=== PATIENT | female | born 2000 | race Two or more races ===

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

== ENCOUNTER 2021-04-03 19:22 | Emergency (ER) | payer MEDICAID ==
[~2021-04-03] VITALS: Ht 157.5 cm; Wt 56.8 kg
[~2021-04-03 19:22] MED LIST changes: -LIDO30CR TP; +LIDO30CR2 TP
[2021-04-03 20:30] VITALS: BP 128/87
--- NOTE | 2021-04-03 20:42 | PHYS DOC ---
Past Medical History Past Medical History: No Pertinent History (MINGO CABRERA APRN) Past Surgical History: No Surgical History (MINGO CABRERA APRN) Smoking Status: Never Smoker Alcohol Use: None Drug Use: Marijuana (MINGO CABRERA APRN) General Adult EDM: Chief Complaint: VOMITING IN HPI: HPI: Patient is a 21-year-old female that presents today with nausea and vomiting. Patient states her last normal menstrual period was January 222020, she took a test in January sometime and discovered that she was positive, since that time she has had nausea and vomiting. Today she comes to the emergency department because she does not feel well and she has been having chills. Patient denies vaginal bleeding vaginal discharge or abdominal pain. (MINGO CABRERA APRN) Review of Systems: Review of Systems: Constitutional: chills, Denies fever [] Eyes: Denies change in visual acuity. [] HENT: Denies nasal congestion or sore throat. [] Respiratory: Denies cough or shortness of breath. [] Cardiovascular: Denies chest pain or edema. [] GI: Nausea and vomiting denies abdominal pain,bloody stools or diarrhea. [] /SEGMENT PRODUCER: Denies dysuria, denies vaginal bleeding, vaginal discharge Musculoskeletal: Denies back pain or joint pain. [] Integument: Denies rash. [] Neurologic: Denies headache, focal weakness or sensory changes. [] Endocrine: Denies polyuria or polydipsia. [] Lymphatic: Denies swollen glands. [] Psychiatric: Denies depression or anxiety. [] (MINGO CABRERA APRN) Heart Score: C/O Chest Pain: N/A Risk Factors: Risk Factors: DM, Current or recent (<one month) smoker, HTN, HLP, family history of CAD, obesity. Risk Scores: Score 0 - 3: 2.5% MACE over next 6 weeks - Discharge Home Score 4 - 6: 20.3% MACE over next 6 weeks - Admit for Clinical Observation Score 7 - 10: 72.7% MACE over next 6 weeks - Early Invasive Strategies (MINGO CABRERA APRN) Allergies: Allergies: Allergies Coded Allergies Type Severity Reaction Last Updated Verified No Known Drug Allergies 7/26/20 No (MINGO CABRERA SERVICE ORDER DISPATCHER) Physical Exam: PE: Constitutional: Well developed, well nourished, no acute distress, non-toxic appearance. [] HENT: Normocephalic, atraumatic, bilateral external ears normal, oropharynx moist, no oral exudates, nose normal. [] Eyes: PERRLA, EOMI, conjunctiva normal, no discharge. [] Neck: Normal range of motion, no tenderness, supple, no stridor. [] Cardiovascular:Heart rate regular rhythm, no murmur [] Lungs & Thorax: Bilateral breath sounds clear to auscultation [] Abdomen: Bowel sounds normal, soft, no tenderness, no masses, no pulsatile masses. [] Skin: Warm, dry, no erythema, no rash. [] Back: No tenderness, no CVA tenderness. [] Extremities: No tenderness, no cyanosis, no clubbing, ROM intact, no edema. [] Neurologic: Alert and oriented X 3, normal motor function, normal sensory function, no focal deficits noted. [] Psychologic: Affect normal, judgement normal, mood normal. [] (MINGO CABRERA SERVICE ORDER DISPATCHER) Current Patient Data: Labs: Laboratory Tests Test 04/03/21 20:36 04/03/21 20:38 04/03/21 21:15 Urine Collection Type Unknown Urine Color Yellow Urine Clarity Clear Urine pH 6.5 Urine Specific [place] 1.010 Urine Protein Negative mg/dL Urine Glucose (UA) Negative mg/dL Urine Ketones (Stick) 15 mg/dL Urine Blood Negative Urine Nitrite Negative Urine Bilirubin Negative Urine Urobilinogen Dipstick 0.2 mg/dL Urine Leukocyte Esterase Negative Urine RBC Occ /HPF Urine WBC 1-4 /HPF Urine Squamous Epithelial Cells Mod /LPF Urine Bacteria Many /HPF Bedside Urine HCG, Qualitative Hcg positive White Blood Count 12.2 x10^3/uL Red Blood Count 3.68 x10^6/uL Hemoglobin 11.0 g/dL Hematocrit 31.8 % Mean Corpuscular Volume 86 fL Mean Corpuscular Hemoglobin 30 pg Mean Corpuscular Hemoglobin Concent 35 g/dL Red Cell Distribution Width 12.7 % Platelet Count 245 x10^3/uL Neutrophils (%) (Auto) 75 % Lymphocytes (%) (Auto) 17 % Monocytes (%) (Auto) 6 % Eosinophils (%) (Auto) 2 % Basophils (%) (Auto) 1 % Neutrophils # (Auto) 9.2 x10^3/uL Lymphocytes # (Auto) 2.0 x10^3/uL Monocytes # (Auto) 0.7 x10^3/uL Eosinophils # (Auto) 0.2 x10^3/uL Basophils # (Auto) 0.1 x10^3/uL Sodium Level 138 mmol/L Potassium Level 3.7 mmol/L Chloride Level 103 mmol/L Carbon Dioxide Level 23 mmol/L Anion Gap 12 Blood Urea Nitrogen 10 mg/dL Creatinine 0.5 mg/dL Estimated GFR (Cockcroft-Gault) 157.3 Glucose Level 100 mg/dL Calcium Level 8.2 mg/dL Lipase 87 U/L Current Medications Medications (Trade) Dose Ordered Sig/Shoaib Route PRN Reason Start Time Stop Time Status Last Admin Dose Admin Sodium Chloride 1,000 ml @ 125 mls/hr 1X ONCE IV 04/03/21 20:45 04/03/21 21:27 DC Ondansetron HCl (Zofran) 4 mg 1X ONCE IVP 04/03/21 20:45 04/03/21 20:46 DC 04/03/21 21:24 Sodium Chloride 1,000 ml @ 999 mls/hr 1X ONCE IV 04/03/21 22:00 04/03/21 23:00 04/03/21 22:00 Vital Signs: Vital Signs Date Time Temp Pulse Resp B/P (MAP) Pulse Ox O2 Delivery O2 Flow Rate FiO2 04/03/21 20:30 98.6 85 18 128/87 (101) 98 Room Air 98.6 (MINGO CABRERA SERVICE ORDER DISPATCHER) EKG: EKG: [] (MINGO CABRERA SERVICE ORDER DISPATCHER) Radiology/Procedures: Radiology/Procedures: [] (MINGO CABRERA SERVICE ORDER DISPATCHER) Course & Med Decision Making: Course & Med Decision Making Pertinent Labs and Imaging studies reviewed. (See chart for details) 2214 patient states she feels much better, nausea has improved. Patient will be discharged home directed to eat small frequent meals, will given a prescription for Zofran as needed to be taken every 6 hours for nausea. Patient states she is seen in the [facility] here in [facility] for her care (DERMIGNO SPAULDING Disclaimer: Dragvinh Disclaimer: This electronic medical record was generated, in whole or in part, using a voice recognition dictation system. (MINGO CABRERA APRN) Departure Departure Impression: Primary Impression: Nausea and vomiting in Referrals: NO PCP (PCP) Patient Instructions: Nausea and Vomiting, [id number], Additional Instructions: Increase by mouth fluids, eat small frequent meals throughout the day Zofran as needed every 6 hours for nausea [facility] Scripts Ondansetron Hcl (ZOFRAN) 4 Mg Tablet 1 TAB PO PRN Q6HRS PRN for NAUSEA, #20 TAB Prov: MINGO CABRERA APRN 04/03/21 Attending Signature Attending Signature I have reviewed the PA/STONE CHIMNEY MASON's note and plan of care. I was available for consultation as needed during the patient's visit in the emergency department. I agree with the clinical impression, plan, and disposition. (PRITESH KUMAR DO) MINGO CABRERA APRN Apr 03, 2021 20:42 PRITESH KUMAR DO Apr 04, 2021 01:52
[2021-04-03 20:44] LABS: BILIRUBIN,URINE NEGATIVE (NEG); CLARITY,URINE CLEAR; NITRITE,URINE NEGATIVE (NEG); PH,URINE 6.5 (<5.0-8.0); PROTEIN,URINE NEGATIVE (NEG-TRACE); UROBILINOGEN,URINE 0.2 mg/dL (0.2 mg/dL)
[2021-04-03] MEDS ORDERED: IV NORMAL SALINE 1000ML BAG 1,000 ML IV ONE ×2 (20:45→22:00)
[2021-04-03] MEDS ORDERED: ONDANSETRON PF 4 MG/2 ML VIAL. IVP ONE (20:45)
[2021-04-03 20:51] LABS: BACTERIA,URINE MANY /HPF (0-FEW); COLOR,URINE YELLOW; RBC,URINE OCC /HPF (0-2)
[2021-04-03 21:25] LABS: BASO # 0.1 x10^3/uL (0.0-0.2); BASO % 1 % (0-3); EOS # 0.2 x10^3/uL (0.0-0.7); EOS % 2 % (0-3); HEMATOCRIT 31.8 % (36.0-47.0); LYMPH % 17 % (24-48); MEAN CORPUSCULAR HEMOGLOBIN 30 pg (25-35); MEAN CORPUSCULAR HGB CONC 35 g/dL (31-37); MEAN CORPUSCULAR VOLUME 86 fL (79-100); MONO # 0.7 x10^3/uL (0.0-1.1); MONO % 6 % (0-9); NEUT # 9.2 x10^3/uL (1.8-7.7); NEUT % 75 % (31-73); PLATELET COUNT 245 x10^3/uL (140-400); RED BLOOD COUNT 3.68 x10^6/uL (3.50-5.40); RED CELL DISTRIBUTION WIDTH 12.7 % (11.5-14.5); WHITE BLOOD COUNT 12.2 x10^3/uL (4.0-11.0)
[2021-04-03 21:35] LABS: CALCIUM 8.2 mg/dL (8.5-10.1); CREATININE 0.5 mg/dL (0.6-1.0); GFR 157.3; POTASSIUM 3.7 mmol/L (3.5-5.1)
[2021-04-03] MEDS ORDERED: ONDA4TAB7 PO (22:18)
== END 2021-04-03 22:56 | disposition home or self-care (01) ==
LOC: ER 19:22
DX: O21.9 Vomiting of pregnancy, unspecified (principal); Z3A.10 10 weeks gestation of pregnancy
CPT/HCPCS: 36415; 80048; 81001; 81025; 83690; 85025; 87086; 96374; 99284; J2405; J7030; 96361

== ENCOUNTER 2021-10-01 00:54 | Observation (INO) | payer MEDICAID ==
[~2021-10-01] VITALS: Ht 157.5 cm; Wt 64.4 kg
[~2021-10-01 00:54] MED LIST changes: -FLUC150T2 PO; +FLUC150T6 PO; +ONDA4TAB7 PO
[2021-10-01] MEDS ORDERED: IV RINGERS,LACTATED 1000ML 1,000 ML IV PRN (01:00)
[2021-10-01 02:19] LABS: BACTERIA,URINE MANY /HPF (0-FEW); RBC,URINE OCC /HPF (0-2)
== END 2021-10-01 02:41 | disposition home or self-care (01) ==
LOC: 3 SO LND 00:54
PROVIDERS: ADMIT Registered Nurse; ATTEND Registered Nurse
DX: O62.9 Abnormality of forces of labor, unspecified (principal); O26.893 Other specified pregnancy related conditions, third trimester; R10.2 Pelvic and perineal pain; Z3A.36 36 weeks gestation of pregnancy
CPT/HCPCS: 59025; 81001; 87086; G0378; G0379